=== PATIENT | male | born 1980 | race Caucasian/White ===

== ENCOUNTER → 2020-07-06 | Outpatient (CLI) | payer OTHER | END | disposition home or self-care (01) | LOC: COVID19 09:48 | PROVIDERS: ATTEND Internal Medicine | DX: U07.1 COVID-19 (principal) ==

== ENCOUNTER 2020-07-11 13:30 | Emergency (ER) | payer OTHER ==
[~2020-07-11] VITALS: Ht 177.8 cm; Wt 99.8 kg
== END 2020-07-11 15:55 | disposition home or self-care (01) ==
LOC: ED 13:30
DX: U07.1 COVID-19 (principal); J12.89 Other viral pneumonia

== ENCOUNTER 2021-03-31 21:40 | Emergency (ER) | payer OTHER ==
[~2021-03-31] VITALS: Ht 177.8 cm; Wt 99.8 kg
[2021-03-31 22:03] LABS: HEMATOCRIT 45.8 % (42.0-52.0); MEAN CELL VOLUME 89.8 fl (80.0-94.0); MEAN CORPUSCULAR HGB 31.8 pg (27.0-31.0); MEAN CORPUSCULAR HGB CONC 35.4 g/dl (33.0-37.0); MEAN PLATELET VOLUME 9.7 fl (9.6-12.3); PLATELET COUNT AUTOMATED 278 10*3/uL (130-400); RED CELL DISTRI WIDTH 12.7 % (0-14.5); WHITE BLOOD COUNT 10.2 10*3/uL (4.8-10.8)
[2021-03-31 22:21] LABS: ALBUMIN 4.3 gm/dl (3.1-4.5); ALKALINE PHOSPHATASE 56 U/L (45-117); BUN 15 mg/dl (7-24); CHLORIDE 104 mmol/L (98-107); CREATININE 1.31 mg/dL (0.70-1.30); POTASSIUM 3.6 mmol/L (3.5-5.1); SGOT/AST 52 IU/L (3-35); SGPT/ALT 100 U/L (12-78); SODIUM 138 mmol/L (136-145); TOTAL PROTEIN 8.1 gm/dL (6.4-8.2)
[2021-03-31 22:27] LABS: PLATELET SUFFICIENCY NORMAL (NORMAL); TOTAL CELLS COUNTED 100 #CELLS
[2021-03-31 22:29] LABS: TROPONIN I < 0.015 ng/ml (<0.045)
== END 2021-04-01 05:28 | disposition home or self-care (01) ==
LOC: ED 21:40
PROVIDERS: Emergency Medicine
DX: R07.9 Chest pain, unspecified (principal); H53.8 Other visual disturbances